=== PATIENT | female | born 2000 | race Caucasian/White ===

== ENCOUNTER 2023-02-14 12:41 | Emergency (ER) | payer MEDICAID ==
[~2023-02-14] VITALS: Ht 162.6 cm; Wt 100.0 kg
[2023-02-14 12:48] VITALS: BP 131/91; TEMP 98.9; O2SAT 99
[2023-02-14 13:27] VITALS: PULSE 87; RESP 16
== END 2023-02-14 16:22 | disposition home or self-care (01) ==
LOC: ER 12:41
DX: B34.9 Viral infection, unspecified (principal)
CPT/HCPCS: 71046; 81025; 99283

== ENCOUNTER 2025-01-16 11:52 | Emergency (ER) | payer MEDICAID ==
[~2025-01-16] VITALS: Ht 162.6 cm; Wt 83.0 kg
[2025-01-16 11:55] VITALS: O2SAT 99
[2025-01-16 15:37] VITALS: BP 148/75; PULSE 85; RESP 16; TEMP 36.6; O2SAT 100
== END 2025-01-16 15:38 | disposition home or self-care (01) ==
LOC: ER 11:59
DX: H66.93 Otitis media, unspecified, bilateral (principal); M25.562 Pain in left knee; F41.9 Anxiety disorder, unspecified; Z98.890 Other specified postprocedural states
CPT/HCPCS: 73560; 99283